=== PATIENT | male | born 1980 ===

== ENCOUNTER → 2025-02-16 11:36 | Outpatient (REF) | payer OTHER, SELFPAY ==
[2025-02-17 15:01] LABS: Mumps Virus IgG Positive; Varicella Zoster IgG (VZV) Positive
[2025-02-20 07:59] LABS: Rubeola Virus IgM (Measles) 0.30 AU (0.00-0.79)
== END ==
LOC: REG 11:36
PROVIDERS: ATTENDING PHYSICIAN Nurse Practitioner Family
DX: Z23 Encounter for immunization (principal)
CPT/HCPCS: 86480; 86706; 86735; 86762; 86765; 86787